=== PATIENT | female | born 1940 | race Caucasian/White ===

== ENCOUNTER 2018-11-12 02:50 | Inpatient (IN) | payer BC, OTHER ==
[2018-11-12] MEDS ORDERED: ASPIRIN 81 MG CHEWABLE TABLETS PO ONE (02:56)
--- NOTE | 2018-11-12 03:06 | PDOC ---
History of Present Illness - General Stated Complaint: CHEST PAIN Time Seen by Provider: 11/12/18 02:56 History Source: Patient Exam Limitations: No Limitations - History of Present Illness Initial Comments: 11/12/18 02:58 78 YOF without PMH who was BIBEMS for abrupt onset stabbing left anterior chest pain which radiates to her left shoulder, associated with mild nausea, since 9 pm tonight. She had eaten cheese and grapes before the onset and initially thought it was because of the food, but it persisted throughout the night. She took #2 aspirin and was given an additional #2 by EMS. EMS found no ST elevations on field EKG and her vitals were wnl for them. The patient notes continued chest pain and nausea, but denies any SOB, sweats, vomiting, abdominal pain, back pain, neck pain/jaw pain, or other symptoms. She had similar pain about 3 years ago and does not remember what caused it. Past History - Past Medical History Allergies/Adverse Reactions: Allergies Allergy/AdvReac Type Severity Reaction Status Date / Time No Known Allergies Allergy Verified 11/12/18 03:30 Home Medications: Ambulatory Orders Levothyroxine [Synthroid -] 75 mcg PO DAILY 11/12/18 Thyroid Disease: Yes (Hypothyroidism) - Surgical History Orthopedic Surgery: Yes (Bilat THR) - Suicide/Smoking/Psychosocial Hx Smoking History: Never smoked Review of Systems - Review of Systems Able to Perform ROS?: Yes Comments:: 11/12/18 03:06 GEN: no fever, chills, malaise, generalized weakness, or weight change HEENT: no ear pain, sore throat, vision change, or eye pain CV: chest pain, no palpitations, lightheadedness, syncope, or edema RESP: no cough, wheezing, or SOB GI: nausea, no abdominal pain, vomiting, diarrhea, constipation, or white/black/ bloody stool : no dysuria, hematuria, incontinence, retention, bleeding, or discharge MSK: no neck/back pain, muscle weakness/pain, or joint swelling/pain NEURO: no headache, seizure, vertigo, numbness, tingling, or focal weakness PSYCH: no substance use, no behavior change SKIN: no jaundice, no rash ROS otherwise negative except as noted in HPI *Physical Exam - Vital Signs Last Vital Signs Temp Pulse Resp BP Pulse Ox 98.9 F 97 H 20 130/60 96 11/12/18 05:09 11/12/18 05:09 11/12/18 05:09 11/12/18 05:09 11/12/18 05:09 - Physical Exam Comments: 11/12/18 03:06 GENERAL: well-appearing, humorous and pleasant elderly female, accompanied by her daughter, Jose/Ox4, no distress, answers questions appropriately HEENT: PERRLA, EOMI, moist mucous membranes NECK/BACK: no midline ttp, no spinal stepoff or deformity, no hematoma, full ROM , neck supple CARDIOVASCULAR: regular rate/rhythm, normal S1S2, no MGR, strong peripheral pulses, capillary refill <2 seconds, extremities wwp, no edema LUNGS/RESPIRATORY: no respiratory distress, coarse breath sounds on the left, crackles on the left GI/ABDOMEN: symmetric [id number], normoactive BS, soft, no ttp, no midline pulsatile masses : no CVA tenderness EXTREMITIES: no muscle atrophy, no acute deformity, no edema SKIN: warm and dry, no pallor, no jaundice, no rash, no bruising, no skin breakdown, no cuts, no lesions NEUROLOGICAL: GCS 15, CN II-XII grossly intact, 5/5 strength proximally and distally, no facial droop Moderate Sedation - Procedure Monitoring Vital Signs: Procedure Monitoring Vital Signs Temperature 98.9 F 11/12/18 05:09 Pulse Rate 97 H 11/12/18 05:09 Respiratory Rate 20 11/12/18 05:09 Blood Pressure 130/60 11/12/18 05:09 O2 Sat by Pulse Oximetry (%) 96 11/12/18 05:09 ED Treatment Course - LABORATORY CBC & Chemistry Diagram: 11/12/18 03:19 11/12/18 03:19 - ADDITIONAL ORDERS Additional order review: Laboratory Results 11/12/18 11/12/18 11/12/18 03:19 03:19 03:15 PT with INR 12.00 INR 1.02 PTT (Actin FS) 29.4 Sodium 136 Potassium 4.3 Chloride 98 Carbon Dioxide 30 Anion Gap 8 BUN 21 H Creatinine 0.8 Creat Clearance w eGFR > 60 Random Glucose 132 H Calcium 8.5 Magnesium 2.2 Total Bilirubin 0.9 AST 23 ALT 24 Alkaline Phosphatase 61 Creatine Kinase 105 Troponin I < 0.02 B-Natriuretic Peptide 118.8 Total Protein 6.7 Albumin 3.8 Urine Color Yellow Urine Appearance Clear Urine pH 6.0 Ur Specific [place] 1.019 Urine Protein Negative Urine Glucose (UA) Negative Urine Ketones Trace H Urine Blood Negative Urine Nitrite Negative Urine Bilirubin Negative Urine Urobilinogen Negative Ur Leukocyte Esterase Negative 11/12/18 03:19 RBC 4.58 MCV 85.4 MCHC 34.4 RDW 14.1 MPV 7.9 Neutrophils % 89.6 H Lymphocytes % 2.2 L D Monocytes % 7.5 Eosinophils % 0.0 D Basophils % 0.7 - RADIOLOGY Radiology Studies Ordered: Category Date Time Status CHEST X-RAY PORTABLE* [RAD] Stat Radiology 11/12/18 02:56 Taken - Medications Given in the ED: ED Medications Discontinued Medications Generic Name Dose Route Start Last Admin Trade Name Freq PRN Reason Stop Dose Admin Acetaminophen 1,000 mg 11/12/18 06:23 11/12/18 06:49 Ofirmev Injection - IVPB 11/12/18 06:24 1,000 mg ONCE ONE Administration Aspirin 162 mg 11/12/18 02:56 11/12/18 03:17 Asa - PO 11/12/18 02:57 Not Given ONCE ONE Sodium Chloride 1,000 ml 11/12/18 06:23 11/12/18 06:49 Normal Saline - IV 11/12/18 06:24 1,000 ml ONCE ONE Administration Medical Decision Making - Medical Decision Making 11/12/18 03:07 Adult Pt p/w chest pain. Initial Vital Signs Temp Pulse Resp BP Pulse Ox 98.9 F 93 H 19 141/79 94 L 11/12/18 02:58 11/12/18 02:58 11/12/18 02:58 11/12/18 02:58 11/12/18 02:58 Exam: As noted in Physical Exam section. DDX IBNLT: ACS, pericarditis, tamponade, aortic dissection, AAA, PTX, PE, esophageal tear, esophagitis (e.g. pill, infectious), esophageal stricture, esophageal FB, gastritis, PUD, pancreatitis, cholecystitis, cholangitis, colitis , bowel perforation, PNA/bronchitis, pleurisy, pleuritis, MVP, pulmonary HTN, musculoskeletal, panic/anxiety, etc. W/U ordered: CBCD CMP Mg Phos Lipase Troponin CK CKMB Coags T&S Blood gas UA UCx EKG CXR. TX ordered: monitor EKG: Reviewed; results as noted in ECG Review section. CXR: Laboratory Tests 11/12/18 11/12/18 11/12/18 03:15 03:19 03:19 WBC 18.5 H RBC 4.58 Hgb 13.5 Hct 39.1 MCV 85.4 MCH 29.4 MCHC 34.4 RDW 14.1 Plt Count 261 MPV 7.9 Absolute Neuts (auto) 16.6 H Neutrophils % 89.6 H Lymphocytes % 2.2 L D Monocytes % 7.5 Eosinophils % 0.0 D Basophils % 0.7 Nucleated RBC % 0 PT with INR 12.00 INR 1.02 PTT (Actin FS) 29.4 Sodium Potassium Chloride Carbon Dioxide Anion Gap BUN Creatinine Creat Clearance w eGFR Random Glucose Calcium Magnesium Total Bilirubin AST ALT Alkaline Phosphatase Creatine Kinase Troponin I B-Natriuretic Peptide Total Protein Albumin Urine Color Yellow Urine Appearance Clear Urine pH 6.0 Ur Specific [place] 1.019 Urine Protein Negative Urine Glucose (UA) Negative Urine Ketones Trace H Urine Blood Negative Urine Nitrite Negative Urine Bilirubin Negative Urine Urobilinogen Negative Ur Leukocyte Esterase Negative 11/12/18 03:19 WBC RBC Hgb Hct MCV MCH MCHC RDW Plt Count MPV Absolute Neuts (auto) Neutrophils % Lymphocytes % Monocytes % Eosinophils % Basophils % Nucleated RBC % PT with INR INR PTT (Actin FS) Sodium 136 Potassium 4.3 Chloride 98 Carbon Dioxide 30 Anion Gap 8 BUN 21 H Creatinine 0.8 Creat Clearance w eGFR > 60 Random Glucose 132 H Calcium 8.5 Magnesium 2.2 Total Bilirubin 0.9 AST 23 ALT 24 Alkaline Phosphatase 61 Creatine Kinase 105 Troponin I < 0.02 B-Natriuretic Peptide 118.8 Total Protein 6.7 Albumin 3.8 Urine Color Urine Appearance Urine pH Ur Specific [place] Urine Protein Urine Glucose (UA) Urine Ketones Urine Blood Urine Nitrite Urine Bilirubin Urine Urobilinogen Ur Leukocyte Esterase Reassessment: Patient coughing, productive but swallows sputum. Still generally well appearing. Repeat VS: HR 92 and pulse ox 93% on RA. Given her leukocytosis, cough, borderline tachycardia, and borderline pulse ox I am more c/f PNA or bronchitis. Awaiting CXR - tech is in CT right now. Vital Signs Temperature 98.9 F 11/12/18 05:09 Pulse Rate 97 H 11/12/18 05:09 Respiratory Rate 20 11/12/18 05:09 Blood Pressure 130/60 11/12/18 05:09 O2 Sat by Pulse Oximetry (%) 96 11/12/18 05:09 The patient is warm to the touch and appears flushed at this time. Coughing more now. CXR shows LLL consolidation. I have placed orders for ceftriaxone, azithromycin, Ofirmev, IVF. CURB-65 score is 2, correlates with 9.2% mortality. PSI is 70, correlates with 0.9% mortality. 11/12/18 06:35 The Pt is unsafe for discharge at this time. They require further hospital observation, workup, and treatment. Microblog sent to [facility] for admission. Blank Decision to Admit order is placed per ED protocol. *DC/Admit/Observation/Transfer Diagnosis at time of Disposition: Chest pain Qualifiers: Chest pain type: unspecified Qualified Code(s): R07.9 - Chest pain, unspecified Pneumonia Qualifiers: Pneumonia type: due to unspecified organism Laterality: left Lung location: lower lobe of lung Qualified Code(s): J18.1 - Lobar pneumonia, unspecified organism - Discharge Dispostion Condition at time of disposition: Guarded Decision to Admit order: Yes Decision to Admit order Date/Time: Decision to Admit Order Category Date Time Status Decision to Admit to Hospital Routine Admission 11/12/18 06:39 Ordered - Referrals - Patient Instructions - Post Discharge Activity
[2018-11-12 03:23] LABS: BASO % 0.7 % (0-2.0); HEMATOCRIT 39.1 % (32.4-45.2); HEMOGLOBIN 13.5 GM/dL (10.7-15.3); LYMPH % 2.2 % (8-40); MCH 29.4 pg (25.7-33.7); MCHC 34.4 g/dl (32.0-36.0); MEAN CELL VOLUME 85.4 fl (80-96); MEAN PLT VOLUME 7.9 fl (7.5-11.1); MONO % 7.5 % (3.8-10.2); NEUT % 89.6 % (42.8-82.8); PLATELET COUNT 261 K/MM3 (134-434); RBC 4.58 M/mm3 (3.60-5.2); RDW 14.1 % (11.6-15.6); WHITE BLOOD COUNT 18.5 K/mm3 (4.0-10.0)
[2018-11-12 03:37] LABS: INR 1.02 (0.83-1.09)
[2018-11-12 03:38] VITALS: BMI 19.6
[2018-11-12 03:40] LABS: ACTIVATED PTT 29.4 SECONDS (25.2-36.5)
[2018-11-12 03:46] LABS: ALBUMIN 3.8 g/dl (3.4-5.0); ALK PHOS 61 U/L (45-117); ANION GAP 8 MMOL/L (8-16); BILIRUBIN,TOTAL 0.9 mg/dL (0.2-1); BLOOD UREA NITROGEN 21 mg/dL (7-18); CALCIUM 8.5 mg/dL (8.5-10.1); CHLORIDE 98 mmol/L (98-107); CO2 30 mmol/L (21-32); CREATININE 0.8 mg/dL (0.55-1.3); GLUCOSE,RANDOM 132 mg/dL (74-106); MAGNESIUM 2.2 mg/dL (1.8-2.4); N-TERMINAL BNP 118.8 pg/ml (5-450); POTASSIUM 4.3 mmol/L (3.5-5.1); SGOT/AST 23 U/L (15-37); SGPT/ALT 24 U/L (13-61); SODIUM 136 mmol/L (136-145); TOT PROT 6.7 g/dl (6.4-8.2)
[2018-11-12 03:55] LABS: URINE APPEARANCE CLEAR; URINE BILIRUBIN NEGATIVE (<2.0 mg/dL); URINE COLOR YELLOW; URINE GLUCOSE (UA) NEGATIVE (NEGATIVE); URINE KETONE TRACE (NEGATIVE); URINE LEUK ESTERASE NEGATIVE (NEGATIVE); URINE NITRITE NEGATIVE (NEGATIVE); URINE PROTEIN NEGATIVE (NEGATIVE); URINE UROBILINOGEN NEGATIVE mg/dL (0.2-1.0)
[2018-11-12] MEDS ORDERED: CEFTRIAXONE 1 GM in DEXTROSE 5%-WATER - 100 ML IVPB ONE (06:22)
[2018-11-12] MEDS ORDERED: AZITHROMYCIN IVPB 500 MG in DEXTROSE 5%-WATER - 250 ML IVPB ONE (06:22)
[2018-11-12] MEDS ORDERED: SODIUM CHLORIDE 0.9% 500 ML INFUS.BAG IV ONE ×2 (06:23→11:38)
[2018-11-12] MEDS ORDERED: ACETAMINOPHEN 1000 MG/100 ML VIAL (NON FORMULARY) IVPB ONE (06:23)
[2018-11-12] MEDS ORDERED: CEFTRIAXONE 1 GM/50 ML BAG ONE (06:28)
[2018-11-12] MEDS ORDERED: AZITHROMYCIN IVPB 500 MG/250 ML BAG IVPB ONE (06:29)
[2018-11-12] MEDS ORDERED: ACETAMINOPHEN INJECTION 100 ML IVPB ONE (06:29)
--- NOTE | 2018-11-12 11:18 | HP ---
CHIEF COMPLAINT: chest pain PCP: DR. Coley HISTORY OF PRESENT ILLNESS: This is a 78 year old female with a history of hypothyroid, who was BIBA due to anterior left chest pain after workin [place]the [place]gr [place] a [place]. Pain is sharp, under left breast, worse with cough and movement. She has had an associated cough for the past week that is yellow in color, and today blood tinged. She denies fever, chills, n, v, sick contacts, abdominal pain, leg swelling. ER course was notable for: wbc count 18,000; cxr possible left infiltrate Recent Travel: none PAST MEDICAL HISTORY: hypothyroid PAST SURGICAL HISTORY: bilateral knee replacement Social History: Smoking:none; smoker Alcohol:non Drugs: none Family History: breast CA sister Allergies No Known Allergies Allergy (Verified 11/12/18 03:30) HOME MEDICATIONS: Home Medications Medication Instructions Recorded Levothyroxine [Synthroid -] 75 mcg PO DAILY 11/12/18 REVIEW OF SYSTEMS CONSTITUTIONAL: Positive: generalized weakness, malaise Absent: fever, chills, diaphoresis, , loss of appetite, weight change HEENT: Absent: rhinorrhea, nasal congestion, throat pain, throat swelling, difficulty swallowing, mouth swelling, ear pain, eye pain, visual changes CARDIOVASCULAR: Absent: chest pain, syncope, palpitations, irregular heart rate, lightheadedness , peripheral edema RESPIRATORY: Positive: shortness of breath, dyspnea with exertion, cough, Absent: orthopnea, wheezing, stridor, hemoptysis GASTROINTESTINAL: Absent: abdominal pain, abdominal distension, nausea, vomiting, diarrhea, constipation, melena, hematochezia GENITOURINARY: Absent: dysuria, frequency, urgency, hesitancy, hematuria, flank pain, genital pain MUSCULOSKELETAL: Absent: myalgia, arthralgia, joint swelling, back pain, neck pain SKIN: Absent: rash, itching, pallor HEMATOLOGIC/IMMUNOLOGIC: Absent: easy bleeding, easy bruising, lymphadenopathy, frequent infections ENDOCRINE: Absent: unexplained weight gain, unexplained weight loss, heat intolerance, cold intolerance NEUROLOGIC: Absent: headache, focal weakness or paresthesias, dizziness, unsteady gait, seizure, mental status changes, bladder or bowel incontinence PSYCHIATRIC: Absent: anxiety, depression, suicidal or homicidal ideation, hallucinations. PHYSICAL EXAMINATION Vital Signs - 24 hr 11/12/18 11/12/18 02:58 05:09 Temperature 98.9 F 98.9 F Pulse Rate 93 H Pulse Rate [ 97 H Right Radial] Respiratory 19 20 Rate Blood Pressure 141/79 Blood Pressure 130/60 [Right Arm] O2 Sat by Pulse 94 L 96 Oximetry (%) GENERAL: Awake, alert, and fully oriented, appearing weak with chills HEAD: Normal with no signs of trauma. NECK: Normal range of motion, supple without lymphadenopathy, JVD, or masses. LUNGS: bilateral basilar crackles L>R HEART: Regular rate and rhythm, normal S1 and S2 without murmur, rub or gallop. ABDOMEN: Soft, nontender, not distended, normoactive bowel sounds, no guarding, no rebound, no masses. No hepatomegaly or splenomegaly. MUSCULOSKELETAL: Normal range of motion at all joints. No bony deformities or tenderness. No CVA tenderness. UPPER EXTREMITIES: 2+ pulses, warm, well-perfused. No cyanosis. No clubbing. No peripheral edema. LOWER EXTREMITIES: 2+ pulses, warm, well-perfused. No calf tenderness. No peripheral edema. NEUROLOGICAL: Cranial nerves II-XII intact. Normal speech. PSYCHIATRIC: Cooperative. Good eye contact. Appropriate mood and affect. SKIN: Warm, dry, normal turgor, no rashes or lesions noted, normal capillary refill. Laboratory Results - last 24 hr 11/12/18 11/12/18 11/12/18 03:15 03:19 03:19 WBC 18.5 H RBC 4.58 Hgb 13.5 Hct 39.1 MCV 85.4 MCH 29.4 MCHC 34.4 RDW 14.1 Plt Count 261 MPV 7.9 Absolute Neuts (auto) 16.6 H Neutrophils % 89.6 H Lymphocytes % 2.2 L D Monocytes % 7.5 Eosinophils % 0.0 D Basophils % 0.7 Nucleated RBC % 0 PT with INR 12.00 INR 1.02 PTT (Actin FS) 29.4 Sodium Potassium Chloride Carbon Dioxide Anion Gap BUN Creatinine Creat Clearance w eGFR Random Glucose Calcium Magnesium Total Bilirubin AST ALT Alkaline Phosphatase Creatine Kinase Troponin I B-Natriuretic Peptide Total Protein Albumin Urine Color Yellow Urine Appearance Clear Urine pH 6.0 Ur Specific [place] 1.019 Urine Protein Negative Urine Glucose (UA) Negative Urine Ketones Trace H Urine Blood Negative Urine Nitrite Negative Urine Bilirubin Negative Urine Urobilinogen Negative Ur Leukocyte Esterase Negative Influenza A (Rapid) Influenza B (Rapid) Blood Type Antibody Screen 11/12/18 11/12/18 11/12/18 03:19 03:19 06:10 WBC RBC Hgb Hct MCV MCH MCHC RDW Plt Count MPV Absolute Neuts (auto) Neutrophils % Lymphocytes % Monocytes % Eosinophils % Basophils % Nucleated RBC % PT with INR INR PTT (Actin FS) Sodium 136 Potassium 4.3 Chloride 98 Carbon Dioxide 30 Anion Gap 8 BUN 21 H Creatinine 0.8 Creat Clearance w eGFR > 60 Random Glucose 132 H Calcium 8.5 Magnesium 2.2 Total Bilirubin 0.9 AST 23 ALT 24 Alkaline Phosphatase 61 Creatine Kinase 105 Troponin I < 0.02 < 0.02 B-Natriuretic Peptide 118.8 Total Protein 6.7 Albumin 3.8 Urine Color Urine Appearance Urine pH Ur Specific [place] Urine Protein Urine Glucose (UA) Urine Ketones Urine Blood Urine Nitrite Urine Bilirubin Urine Urobilinogen Ur Leukocyte Esterase Influenza A (Rapid) Influenza B (Rapid) Blood Type B POSITIVE Antibody Screen Negative 11/12/18 06:43 WBC RBC Hgb Hct MCV MCH MCHC RDW Plt Count MPV Absolute Neuts (auto) Neutrophils % Lymphocytes % Monocytes % Eosinophils % Basophils % Nucleated RBC % PT with INR INR PTT (Actin FS) Sodium Potassium Chloride Carbon Dioxide Anion Gap BUN Creatinine Creat Clearance w eGFR Random Glucose Calcium Magnesium Total Bilirubin AST ALT Alkaline Phosphatase Creatine Kinase Troponin I B-Natriuretic Peptide Total Protein Albumin Urine Color Urine Appearance Urine pH Ur Specific [place] Urine Protein Urine Glucose (UA) Urine Ketones Urine Blood Urine Nitrite Urine Bilirubin Urine Urobilinogen Ur Leukocyte Esterase Influenza A (Rapid) Negative Influenza B (Rapid) Negative Blood Type Antibody Screen ASSESSMENT/PLAN: This is a 78 year old female with a history of hypothyroid, who presents with a one week productive cough and complaints of chest pain x1 day. R/O pna. R/O acs. Chest pain is now resolved. #cough secondary to PNA -IVF, cbc, cmp -sputum, blood culture -urine antigens for legionella -ceftriaxone 1gm IVPB daily -Tylenol for fever.pain #chest pain secondary to costcochondritis from cough; ACS ruled out negative trop x2; pain is palpable -Tylenol #prolonged qtc: -471 -avoid qt prolonging agents -already received azithro in ed -will repeat ecg in am GI ppl: n/a VTE ppl: heparin sq Disposition: inpatient, IV antibiotics Visit type - Emergency Visit Emergency Visit: Yes ED Registration Date: 11/12/18 Care time: The patient presented to the Emergency Department on the above date and was hospitalized for further evaluation of their emergent condition. - New Patient This patient is new to me today: Yes Date on this admission: 11/12/18 - Critical Care Critical Care patient: No
[2018-11-12] MEDS: SODIUM CHLORIDE 1,000 ML IV SCH ×2 (12:33→22:20)
[2018-11-12] MEDS ORDERED: ACETAMINOPHEN 325 MG TABLET (FP) PO PRN (13:06)
--- NOTE | 2018-11-12 13:26 | EKG ---
Test Reason : Blood Pressure : / mmHG Vent. Rate : 085 BPM Atrial Rate : 085 BPM P-R Int : 168 ms QRS Dur : 088 ms QT Int : 396 ms P-R-T Axes : 036 -34 032 degrees QTc Int : 471 ms NORMAL SINUS RHYTHM LEFT AXIS DEVIATION POSSIBLE ANTERIOR INFARCT , AGE UNDETERMINED ABNORMAL ECG NO PREVIOUS ECGS AVAILABLE Confirmed by WYATT MENCHACA MD ([id number]) on 11/12/2018 1:25:56 PM Referred By: Confirmed By:WYATT MENCHACA MD
--- NOTE | 2018-11-12 14:25 | PN ---
Teaching Attending Note Name of Resident: Heike Maciel ATTENDING PHYSICIAN STATEMENT I saw and evaluated the patient. I reviewed the resident's note and discussed the case with the resident. I agree with the resident's findings and plan as documented. SUBJECTIVE: CC: cough and CP HPI: 78 y/o lady with h/o hypothyroidism who presented with L sided cp and cough. she had non productive cough x 1 week which turned into productive of green sputum. she denies any fever or chills. 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 it was exacerbated by L upper body and L shoulder movements. denies any abd pain, diarrhea , sore throat, sick contact. OBJECTIVE: NAD , awake alert and oriented. HEENT: NC, AT, no facial droop. EOMI, round equal pupils, reactive to light. Lungs: bibasilar crackles CV: RRR, no MRG Ext : no edema . no erythema. Abd: sfot, NT, ND , NL BS MS: TTP in Left upper chest wall Neuro : no facial droop. EOMI, round equal pupils, reactive to light. strength 5 /5 in upper and lower extremities proximally and distally ASSESSMENT AND PLAN: 78 y/o lady with h/o hypothyroidism who presented with L sided cp and cough. she was found to have sepsis due to PNA 1- Sepsis : with crackles , productive cough and leukocytosis, source is CAP. - given ceftriaxone and azithro in ER . - Long QTC, will cont ceftriaxone - send legionella urine Ag - send sputum and blood cx - follow CBC - start IVF 2- hypothyroidism : cont synthroid DVT px dispo : HLOC
[2018-11-12] MEDS: HEPARIN NA (PORCINE) 5,000 UNITS/ML 1ML VIAL SQ SCH ×2 (14:57→22:20)
[2018-11-12] MEDS ORDERED: HEPARIN NA (PORCINE) 5,000 UNITS/ML 1ML VIAL ONE (14:57)
[2018-11-13] MEDS ORDERED: DEXTROSE 5%-WATER - 50 ML IVPB ONE (05:38)
[2018-11-13] MEDS ORDERED: cefTRIAXone SODIUM 1 GM VIAL ONE (05:38)
[2018-11-13] MEDS: HEPARIN NA (PORCINE) 5,000 UNITS/ML 1ML VIAL SQ SCH ×2 (05:46→13:21)
[2018-11-13] MEDS ORDERED: LEVOTHYROXINE NA 75 MCG TABLET (FP) PO SCH (07:00)
[2018-11-13] MEDS ORDERED: CEFTRIAXONE 1 GM in DEXTROSE 5%-WATER - 50 ML IVPB SCH ×2 (07:00→10:00)
[2018-11-13 07:10] LABS: BASO % 0.3 % (0-2.0); EOS % 0.4 % (0-4.5); HEMATOCRIT 35.1 % (32.4-45.2); HEMOGLOBIN 11.5 GM/dL (10.7-15.3); LYMPH % 11.6 % (8-40); MCH 28.5 pg (25.7-33.7); MCHC 32.7 g/dl (32.0-36.0); MEAN CELL VOLUME 87.2 fl (80-96); MEAN PLT VOLUME 8.2 fl (7.5-11.1); NEUT % 82.7 % (42.8-82.8); PLATELET COUNT 203 K/MM3 (134-434); RBC 4.02 M/mm3 (3.60-5.2); RDW 14.4 % (11.6-15.6); WHITE BLOOD COUNT 10.9 K/mm3 (4.0-10.0)
[2018-11-13 07:54] LABS: ANION GAP 8 MMOL/L (8-16); BLOOD UREA NITROGEN 20 mg/dL (7-18); CALCIUM 7.5 mg/dL (8.5-10.1); CHLORIDE 106 mmol/L (98-107); CO2 26 mmol/L (21-32); CREATININE 0.6 mg/dL (0.55-1.3); GLUCOSE,RANDOM 95 mg/dL (74-106); PHOSPHOROUS 2.1 mg/dL (2.5-4.9); POTASSIUM 3.5 mmol/L (3.5-5.1); SODIUM 139 mmol/L (136-145)
[2018-11-13] MEDS ORDERED: AZITHROMYCIN IVPB 250 MG in DEXTROSE 5%-WATER - 250 ML IVPB SCH (10:00)
[2018-11-13] MEDS: SODIUM CHLORIDE 1,000 ML IV SCH ×2 (11:12→13:18)
--- NOTE | 2018-11-13 11:25 | EKG ---
Test Reason : Blood Pressure : / mmHG Vent. Rate : 069 BPM Atrial Rate : 069 BPM P-R Int : 168 ms QRS Dur : 090 ms QT Int : 428 ms P-R-T Axes : 042 -21 011 degrees QTc Int : 458 ms NORMAL SINUS RHYTHM NORMAL ECG WHEN COMPARED WITH ECG OF 12-NOV-2018 03:07, NO SIGNIFICANT CHANGE WAS FOUND Confirmed by WYATT MENCHACA MD ([id number]) on 11/13/2018 11:24:48 AM Referred By: Mamta DEL RIO Confirmed By:WYATT MENCHACA MD
[2018-11-13 15:23] VITALS: BP 130/68; PULSE 70; TEMP 98.4
--- NOTE | 2018-11-13 15:44 | DS ---
Physical Examination Vital Signs: Vital Signs Temperature 98.4 F 11/13/18 15:21 Pulse Rate 70 11/13/18 15:21 Respiratory Rate 20 11/13/18 15:21 Blood Pressure 130/68 11/13/18 15:21 O2 Sat by Pulse Oximetry (%) 95 11/13/18 09:00 Findings/Remarks: no pain, no SOB , feels much better. no ROPER. chest pain in L upper chest almost resolved PE: NAD MMM Lungs: bibasilar crackles CV: RRR, no MRG Ext : no edema . no erythema. Labs: CBC, BMP 11/13/18 06:00 11/13/18 06:00 Discharge Summary Reason For Visit: CHEST PAIN,PNEUMONIA Current Active Problems Chest pain (Acute) Pneumonia (Acute) Hospital Course: 78 y/o lady with h/o hypothyroidism who presented with L sided cp and cough. on admission she was found to be septic with leukocytosis of 18. she has LL infiltrate on cxray. she had no other source of infection. she was admitted , hydrated, treated with ceftriaxone ( long QTC ) . her legionella urine Ag was neg. she improved significantly next day and was switched to Po augmentin to continue for 3 more days ( total of 5 days ) . she also presented with L sied CP. which was thought to be MS and was reproducible. that almost completely resolved on day she is to be dc home today condition : improved f/u Dr. Wood time spent 30 min Condition: Improved - Instructions Diet, Activity, Other Instructions: - you were treated for Pneumonia . - please continue to take antibiotics Augmentin for 3 more days . start tomorrow morning - please follow with your PCP in 1 week - please notify MD if you have more chest pain , or fever or other complaints . you might need to come back to ER - stay hydrated . - pick your medication form the pharmacy today please good luck Referrals: Shan Wood MD [Staff Physician] - 1 Week Disposition: HOME - Home Medications Comprehensive Discharge Medication List: Ambulatory Orders Levothyroxine [Synthroid -] 75 mcg PO DAILY 11/12/18 Amoxicillin/Potassium Clav [Augmentin 875-125 Tablet] 1 each PO Q12H #6 tablet 11/13/18 This patient is new to me today: No Emergency Visit: Yes ED Registration Date: 11/12/18 Care time: The patient presented to the Emergency Department on the above date and was hospitalized for further evaluation of their emergent condition. Critical Care patient: No - Discharge Referral Referred to [facility] No
== END 2018-11-13 16:55 | disposition home or self-care (01) | DRG 195 ==
LOC: JER 02:50 → JERBED 06:39 → J7W 20:38
PROVIDERS: ADMIT Internal Medicine; ATTEND Internal Medicine
DX: J18.9 Pneumonia, unspecified organism (principal); R07.9 Chest pain, unspecified; E03.9 Hypothyroidism, unspecified; D72.829 Elevated white blood cell count, unspecified
CPT/HCPCS: 36415; 71045-TC-FY; 80048; 80053; 81003; 82550; 83735; 83880; 84100; 84484; 85025; 85610; 85730; 86850; 86900; 86901; 87040; 87070; 87086; 87205; 87804; 87899; 93005; 93010; 99285-25; J0131; J1644; J7030

== ENCOUNTER → 2023-02-24 | Day surgery (SDC) | payer BC, OTHER | END | disposition home or self-care (01) | LOC: JRADUS-SUR 09:11 | PROVIDERS: ATTEND Registered Nurse | PROC: 0HBU3ZX Excision of Left Breast, Percutaneous Approach, Diagnostic (ICD-10-PCS; principal; 2023-02-24) | DX: N60.32 Fibrosclerosis of left breast (principal); N60.82 Other benign mammary dysplasias of left breast; N64.89 Other specified disorders of breast; N63.20 Unspecified lump in the left breast, unspecified quadrant | CPT/HCPCS: 19083; 77065-TC; 87899; 88305-TC; A4648 ==

== ENCOUNTER 2023-05-09 11:24 | Emergency (ER) | payer BC, OTHER ==
[2023-05-09] MEDS ORDERED: DIPHTH,PERTUSS(ACELL),TET 0.5 ML DISP.SYRIN IM ONE ×2 (11:36→11:38)
[2023-05-09 11:42] VITALS: BP 127/81; PULSE 83; RESP 18; TEMP 98.4; BMI 23.3
== END 2023-05-09 12:05 | disposition home or self-care (01) ==
LOC: FER 11:24
PROC: 3E0234Z Introduction of Serum, Toxoid and Vaccine into Muscle, Percutaneous Approach (ICD-10-PCS; principal; 2023-05-09)
DX: M79.641 Pain in right hand (principal); R22.31 Localized swelling, mass and lump, right upper limb; L03.113 Cellulitis of right upper limb
CPT/HCPCS: 90715; 99283-25